=== PATIENT | male | born 1975 | race American Indian/Alaskan Native ===

== ENCOUNTER 2021-10-16 09:55 | Inpatient (IN) | payer MEDICAID, OTHER ==
[2021-10-16] MEDS ORDERED: Sodium Chloride 0.9% 1,000 ML IV ONE ×2 (10:52→12:32)
[2021-10-16] MEDS ORDERED: cefTRIAXone 2 GM in Sodium Chloride 0.9% 50 ML IV ONE ×2 (11:47→12:15)
[2021-10-16] MEDS ORDERED: cefTRIAXone 1 GM AdvVial IV ONE (11:55)
[2021-10-16] MEDS: HYDROmorphone 0.5 MG/0.5 ML Syringe IVPUSH ONE ×2 (13:21→13:22)
[2021-10-16] MEDS ORDERED: Acetaminophen/HYDROcodone 325-5 MG Tab PO ONE (15:13)
[2021-10-16] MEDS ORDERED: HYDROmorphone 1 MG/ML Syringe IVPUSH ONE ×3 (16:10→21:42)
[2021-10-16] MEDS ORDERED: Glucagon,Human Recombinant 1 MG Vial IM PRN (16:11)
[2021-10-16] MEDS ORDERED: 50% Dextrose in Water 50 ML Syringe IVPUSH PRN (16:11)
[2021-10-16] MEDS ORDERED: Insulin Glargine,Human Rec. Analog 100 Units/ML 3 ML Pen SUBCUT SCH (16:15)
[2021-10-16] MEDS ORDERED: Lactated Ringers 1,000 ML IV SCH (16:15)
[2021-10-16] MEDS ORDERED: Ondansetron 4 MG Tab.DIS PO PRN (21:29)
[2021-10-16] MEDS ORDERED: Albuterol/Ipratropium 3.0-0.5 MG/3 ML Neb Soln NEB PRN (21:29)
[2021-10-16] MEDS ORDERED: Enoxaparin 40 MG/0.4 ML Syringe SUBCUT SCH (21:29)
[2021-10-16] MEDS ORDERED: Albuterol 0.083% 2.5 MG/3 ML Neb Soln NEB PRN (21:29)
[2021-10-16] MEDS ORDERED: Lisinopril 20 MG Tab PO SCH (21:29)
[2021-10-16] MEDS ORDERED: Docusate Sodium 100 MG Cap PO PRN (21:29)
[2021-10-16] MEDS ORDERED: Ketorolac 30 MG/ML SDV IM PRN (21:29)
[2021-10-16] MEDS ORDERED: Bisacodyl 5 MG Tab PO PRN (21:29)
[2021-10-16] MEDS ORDERED: LORazepam 2 MG/ML SDV IV PRN (21:29)
[2021-10-16] MEDS ORDERED: Morphine 2 MG/ML SYRINGE IVPUSH PRN (21:29)
[2021-10-16] MEDS ORDERED: NIFEdipine 30 MG Tab.ER PO SCH (21:29)
[2021-10-16] MEDS ORDERED: Acetaminophen 1,000 MG in Premix Bag 1 BAG IV ONE (21:41)
[2021-10-16] MEDS: Sodium Chloride 0.9% 1,000 ML IV SCH (21:47)
[2021-10-16] MEDS ORDERED: Sodium Chloride 0.9% 1,000 ML IV SCH (22:00)
[2021-10-16] MEDS ORDERED: Lisinopril 10 MG Tab ONE (22:11)
[2021-10-16] MEDS: Gabapentin 300 MG Cap PO SCH (22:16)
[2021-10-16] MEDS: glipiZIDE 5 MG Tab.ER PO SCH (22:16)
[2021-10-16] MEDS: Nicotine 21 MG/24 Hr Patch TRDERM SCH (22:17)
[2021-10-16] MEDS: Meropenem 1 GM in Sodium Chloride 0.9% 100 ML IV SCH (22:17)
[2021-10-16] MEDS: Insulin Lispro 100 Unit/ML 3 ML KwikPen SUBCUT SCH (22:19)
[2021-10-17] MEDS ORDERED: cefTRIAXone 2 GM in Sodium Chloride 0.9% 50 ML IV SCH (01:10)
[2021-10-17] MEDS: Acetaminophen/HYDROcodone 325-5 MG Tab PO PRN ×6 (02:43→23:57)
[2021-10-17] MEDS: Meropenem 1 GM in Sodium Chloride 0.9% 100 ML IV SCH ×3 (05:45→22:25)
[2021-10-17] MEDS ORDERED: Insulin Lispro 100 Unit/ML 3 ML KwikPen SUBCUT SCH (07:00)
[2021-10-17] MEDS: Sodium Chloride 0.9% 1,000 ML IV SCH ×2 (07:18→17:28)
[2021-10-17] MEDS: Insulin Lispro 100 Unit/ML 3 ML KwikPen SUBCUT SCH ×4 (08:28→22:21)
[2021-10-17] MEDS: Vancomycin 1.2 GM in Sodium Chloride 0.9% 250 ML IV SCH ×2 (08:30→20:17)
[2021-10-17] MEDS: glipiZIDE 5 MG Tab.ER PO SCH (08:30)
[2021-10-17] MEDS: Insulin Glargine,Human Rec. Analog 100 Units/ML 3 ML Pen SUBCUT SCH (08:31)
[2021-10-17] MEDS: Gabapentin 300 MG Cap PO SCH ×2 (08:32→20:18)
[2021-10-17] MEDS: Nicotine 21 MG/24 Hr Patch TRDERM SCH (08:39)
[2021-10-17] MEDS ORDERED: Insulin Glargine,Human Rec. Analog 100 Units/ML 3 ML Pen SUBCUT SCH (09:00)
[2021-10-17] MEDS: HYDROmorphone 0.5 MG/0.5 ML Syringe IVPUSH PRN (12:50)
[2021-10-17] MEDS: HYDROmorphone 0.5 MG/0.5 ML Syringe IVPUSH ONE (15:52)
[2021-10-17] MEDS: Enoxaparin 40 MG/0.4 ML Syringe SUBCUT SCH (20:19)
[2021-10-18] MEDS: Sodium Chloride 0.9% 1,000 ML IV SCH ×2 (02:25→14:29)
[2021-10-18] MEDS: Meropenem 1 GM in Sodium Chloride 0.9% 100 ML IV SCH (05:33)
[2021-10-18] MEDS: HYDROmorphone 0.5 MG/0.5 ML Syringe IVPUSH PRN ×3 (05:47→23:31)
[2021-10-18 06:35] LABS: ESTIMATED GFR 68 mL/min (>60)
[2021-10-18] MEDS: Vancomycin 1.2 GM in Sodium Chloride 0.9% 250 ML IV SCH (07:48)
[2021-10-18] MEDS: Acetaminophen/HYDROcodone 325-5 MG Tab PO PRN ×4 (07:59→21:44)
[2021-10-18] MEDS: Insulin Lispro 100 Unit/ML 3 ML KwikPen SUBCUT SCH ×4 (08:03→21:43)
[2021-10-18] MEDS: Gabapentin 300 MG Cap PO SCH ×2 (11:28→21:44)
[2021-10-18] MEDS: Insulin Glargine,Human Rec. Analog 100 Units/ML 3 ML Pen SUBCUT SCH (11:29)
[2021-10-18] MEDS: Nicotine 21 MG/24 Hr Patch TRDERM SCH (11:29)
[2021-10-18] MEDS: cefTRIAXone 2 GM in Sodium Chloride 0.9% 50 ML IV SCH (14:31)
[2021-10-18] MEDS: Enoxaparin 40 MG/0.4 ML Syringe SUBCUT SCH (21:44)
[2021-10-19] MEDS: Acetaminophen/HYDROcodone 325-5 MG Tab PO PRN ×4 (03:20→19:43)
[2021-10-19] MEDS: Sodium Chloride 0.9% 1,000 ML IV SCH (04:38)
[2021-10-19] MEDS: Insulin Lispro 100 Unit/ML 3 ML KwikPen SUBCUT SCH ×4 (08:21→21:24)
[2021-10-19] MEDS: Insulin Glargine,Human Rec. Analog 100 Units/ML 3 ML Pen SUBCUT SCH (08:23)
[2021-10-19] MEDS: Nicotine 21 MG/24 Hr Patch TRDERM SCH (08:28)
[2021-10-19] MEDS: Gabapentin 300 MG Cap PO SCH ×2 (08:29→21:25)
[2021-10-19] MEDS: HYDROmorphone 0.5 MG/0.5 ML Syringe IVPUSH PRN ×4 (08:30→21:24)
[2021-10-19] MEDS: tiZANidine 2 MG Tab PO PRN ×3 (12:11→23:56)
[2021-10-19] MEDS: Acetaminophen 325 MG Tab PO PRN (13:37)
[2021-10-19] MEDS: cefTRIAXone 2 GM in Sodium Chloride 0.9% 50 ML IV SCH (14:38)
[2021-10-19] MEDS: Enoxaparin 40 MG/0.4 ML Syringe SUBCUT SCH (21:25)
[2021-10-19] MEDS: HYDROmorphone 1 MG/ML Syringe IVPUSH PRN (22:04)
[2021-10-20] MEDS: HYDROmorphone 1 MG/ML Syringe IVPUSH PRN ×4 (02:44→22:39)
[2021-10-20] MEDS: Acetaminophen/HYDROcodone 325-5 MG Tab PO PRN ×4 (04:06→20:51)
[2021-10-20] MEDS: tiZANidine 2 MG Tab PO PRN ×3 (06:05→19:21)
[2021-10-20] MEDS: Nicotine 21 MG/24 Hr Patch TRDERM SCH (08:08)
[2021-10-20] MEDS: Gabapentin 300 MG Cap PO SCH ×2 (08:09→20:52)
[2021-10-20] MEDS: Insulin Lispro 100 Unit/ML 3 ML KwikPen SUBCUT SCH ×4 (08:10→21:57)
[2021-10-20] MEDS: Insulin Glargine,Human Rec. Analog 100 Units/ML 3 ML Pen SUBCUT SCH (08:14)
[2021-10-20] MEDS ORDERED: Potassium Chloride 20 MEQ Tab.ER PO ONE (08:45)
[2021-10-20] MEDS: cefTRIAXone 2 GM in Sodium Chloride 0.9% 50 ML IV SCH (13:45)
[2021-10-20] MEDS: Ketorolac 30 MG/ML SDV IVPUSH PRN (18:04)
[2021-10-20] MEDS: Temazepam 15 MG Cap PO PRN (20:51)
[2021-10-20] MEDS: Enoxaparin 40 MG/0.4 ML Syringe SUBCUT SCH (20:52)
[2021-10-21] MEDS: Ketorolac 30 MG/ML SDV IVPUSH PRN ×4 (00:08→20:46)
[2021-10-21] MEDS: tiZANidine 2 MG Tab PO PRN ×2 (07:41→19:19)
[2021-10-21] MEDS: Nicotine 21 MG/24 Hr Patch TRDERM SCH (08:35)
[2021-10-21] MEDS: Gabapentin 300 MG Cap PO SCH ×2 (08:36→20:47)
[2021-10-21] MEDS: Insulin Lispro 100 Unit/ML 3 ML KwikPen SUBCUT SCH ×4 (08:42→21:24)
[2021-10-21] MEDS: Insulin Glargine,Human Rec. Analog 100 Units/ML 3 ML Pen SUBCUT SCH (08:46)
[2021-10-21] MEDS: cefTRIAXone 2 GM in Sodium Chloride 0.9% 50 ML IV SCH (15:07)
[2021-10-21] MEDS: metFORMIN 500 MG Tab PO SCH (17:36)
[2021-10-21] MEDS: glipiZIDE 5 MG Tab.ER PO SCH (17:39)
[2021-10-21] MEDS: Enoxaparin 40 MG/0.4 ML Syringe SUBCUT SCH (20:47)
[2021-10-21] MEDS: Temazepam 15 MG Cap PO PRN (20:47)
[2021-10-22] MEDS: tiZANidine 2 MG Tab PO PRN ×2 (01:18→11:42)
[2021-10-22] MEDS: Ketorolac 30 MG/ML SDV IVPUSH PRN (02:54)
[2021-10-22] MEDS: Acetaminophen 325 MG Tab PO PRN (02:54)
[2021-10-22] MEDS: Gabapentin 300 MG Cap PO SCH (08:30)
[2021-10-22] MEDS: metFORMIN 500 MG Tab PO SCH (08:31)
[2021-10-22] MEDS: Nicotine 21 MG/24 Hr Patch TRDERM SCH (08:32)
[2021-10-22] MEDS: glipiZIDE 5 MG Tab.ER PO SCH (08:32)
[2021-10-22] MEDS: Insulin Lispro 100 Unit/ML 3 ML KwikPen SUBCUT SCH ×2 (08:35→12:31)
[2021-10-22] MEDS: Insulin Glargine,Human Rec. Analog 100 Units/ML 3 ML Pen SUBCUT SCH (08:38)
[2021-10-22] MEDS ORDERED: NIFEdipine 30 MG Tab.ER PO SCH (09:00)
[2021-10-22] MEDS ORDERED: atorvaSTATin 20 MG Tab PO SCH (09:00)
[2021-10-22] MEDS ORDERED: Aspirin 81 MG Tab.EC PO SCH (09:00)
[2021-10-22] MEDS ORDERED: Lisinopril 20 MG Tab PO SCH (09:00)
[2021-10-22] MEDS: cefTRIAXone 2 GM in Sodium Chloride 0.9% 50 ML IV SCH (12:33)
== END 2021-10-22 14:10 | disposition home health service (06) | DRG 872 ==
LOC: JP.ED 09:55 → JP.MS 20:06
PROVIDERS: ADMIT Internal Medicine; ATTEND Internal Medicine
DX: A40.0 Sepsis due to streptococcus, group A (principal); N17.9 Acute kidney failure, unspecified; M46.26 Osteomyelitis of vertebra, lumbar region; M46.46 Discitis, unspecified, lumbar region; R65.20 Severe sepsis without septic shock; E11.42 Type 2 diabetes mellitus with diabetic polyneuropathy; F15.10 Other stimulant abuse, uncomplicated; E11.40 Type 2 diabetes mellitus with diabetic neuropathy, unspecified; E11.65 Type 2 diabetes mellitus with hyperglycemia; F17.210 Nicotine dependence, cigarettes, uncomplicated; G43.909 Migraine, unspecified, not intractable, without status migrainosus; E78.00 Pure hypercholesterolemia, unspecified; Z20.822 Contact with and (suspected) exposure to COVID-19; I15.2 Hypertension secondary to endocrine disorders; E86.0 Dehydration; K08.9 Disorder of teeth and supporting structures, unspecified; Z79.4 Long term (current) use of insulin; Z86.19 Personal history of other infectious and parasitic diseases; Z79.82 Long term (current) use of aspirin; Z79.84 Long term (current) use of oral hypoglycemic drugs; Z79.899 Other long term (current) drug therapy; Z89.421 Acquired absence of other right toe(s)
CPT/HCPCS: 36415; 36600; 71045; 71045-26; 72131; 72148; 74176; 80048; 80053; 80202; 80305-QW; 81001; 82803; 82947; 83605; 83735; 84145; 84443; 85025; 85027; 86140; 87040; 87077; 87086; 93306; 96361; 96365; 96367; 96375; 96376; 97162-GP; 97530-GP; 97535-GP; 99222; 99232; 99233; 99239; 99283; 99285-25; A9270-GY; C1751; J0131; J0696; J1170; J1642; J1650; J1815; J1815-GY; J1885; J2185; J2270; J3370; J7030; J7050; J7120; U0002

== ENCOUNTER 2022-06-03 20:32 | Emergency (ER) | payer MEDICAID | END 2022-06-03 21:31 | disposition home or self-care (01) | LOC: JP.ED 20:32 | DX: E11.621 Type 2 diabetes mellitus with foot ulcer (principal); E11.40 Type 2 diabetes mellitus with diabetic neuropathy, unspecified; L97.425 Non-pressure chronic ulcer of left heel and midfoot with muscle involvement without evidence of necrosis; E78.00 Pure hypercholesterolemia, unspecified; I10 Essential (primary) hypertension; Z72.0 Tobacco use; Z79.82 Long term (current) use of aspirin; Z79.4 Long term (current) use of insulin; Z79.899 Other long term (current) drug therapy | CPT/HCPCS: 99282 ==

== ENCOUNTER 2022-09-23 16:16 | Emergency (ER) | payer MEDICAID ==
[2022-09-23 17:36] LABS: HEMATOCRIT 32.3 % (38.4-49.7); HEMOGLOBIN 10.4 g/dL (12.9-16.9); MEAN CORPUSCULAR HEMOGLOBIN 25.9 pg (31.6-35.5); MEAN CORPUSCULAR HGB CONC 32.2 g/dL (31.6-35.5); MEAN CORPUSCULAR VOLUME 80.5 fL (81.4-99.0); PLATELET COUNT,PLT 327 K/uL (130-375); RED BLOOD CELL COUNT 4.01 M/uL (4.14-5.76); WHITE BLOOD CELL COUNT,WBC 24.8 K/uL (3.2-11.0)
[2022-09-23 17:39] LABS: APPEARANCE,URINE CLOUDY (CLEAR); BILIRUBIN,URINE NEGATIVE (NEGATIVE); COLOR,URINE YELLOW (YELLOW); GLUCOSE,URINE 500 mg/dL (NEGATIVE); KETONES,URINE NEGATIVE (NEGATIVE); LEUKOCYTE ESTERASE,URINE NEGATIVE (NEGATIVE); NITRITE,URINE NEGATIVE (NEGATIVE); OCCULT BLOOD,URINE TRACE-INTACT (NEGATIVE); PH,URINE 5.5 (5.0-8.0); PROTEIN,URINE 30 mg/dL (NEGATIVE); UROBILINOGEN,URINE 0.2 EU/dL (0.2-1.0)
[2022-09-23 17:45] LABS: BAND ABSOLUTE MAN 0.74 K/uL; BAND PERCENT MAN 3 % (5-11); LYMPHOCYTES ABSOLUTE MAN 0.99 K/uL (0.8-3.3); LYMPHOCYTES PERCENT MAN 4 % (24-44); METAMYELOCYTE ABSOLUTE MAN 0.25 K/uL; METAMYELOCYTE PERCENT MAN 1 %; MONOCYTES ABSOLUTE MAN 0.25 K/uL (0.20-0.90); MONOCYTES PERCENT MAN 1 % (2-6); NEUTROPHILS ABSOLUTE MAN 22.57 K/uL (1.0-7.6); SEG NEUTROPHILS PERCENT MAN 91 % (36-66)
[2022-09-23 17:49] LABS: RBC,URINE 0-5 (0-5); WBC,URINE 0-5 (0-5)
[2022-09-23 17:50] LABS: EPITHELIAL CELLS,URINE FEW
[2022-09-23 17:51] LABS: AMORPHOUS SEDIMENT,URINE MODERATE; BACTERIA,URINE FEW; MUCUS,URINE NOT SEEN
[2022-09-23 17:53] LABS: BLOOD UREA NITROGEN,BUN 30 mg/dL (7-18); CALCIUM 9.2 mg/dL (8.5-10.1); CARBON DIOXIDE,CO2 24 mmol/L (21-32); CHLORIDE,CL 88 mmol/L (100-108); ESTIMATED GFR 40 mL/min (>60); POTASSIUM,K 4.8 mmol/L (3.6-5.2); SODIUM,NA 121 mmol/L (140-148)
[2022-09-23 17:54] LABS: ANION GAP 13.8 mmol/L (5.0-14.0); GLUCOSE RANDOM 659 mg/dL (74-106)
[2022-09-23] MEDS ORDERED: Sodium Chloride 0.9% 1,000 ML IV ONE ×3 (18:06→21:48)
[2022-09-23] MEDS ORDERED: Ampicillin/Sulbactam Na 3 GM in Sodium Chloride 0.9% 100 ML IV ONE (18:17)
[2022-09-23 18:18] LABS: BASE EXCESS VENOUS 0.1 mm/L; BICARBONATE,VENOUS 24.3 mmol/L; METHEMOGLOBIN 0.9 %; O2 SATURATION VENOUS 48.8; OXYHEMOGLOBIN 46.9 %; PCO2 VENOUS 40.4 mm/Hg; PH,VENOUS 7.398 (7.350-7.450); TOTAL HEMOGLOBIN 10.7 g/dL (13.5-18.0)
[2022-09-23 18:19] LABS: PO2 VENOUS 28.7 mm/Hg
[2022-09-23] MEDS ORDERED: Vancomycin 2 GM in Sodium Chloride 0.9% 500 ML IV ONE (18:32)
[2022-09-23] MEDS ORDERED: Azithromycin 500 MG in Sodium Chloride 0.9% 150 ML IV ONE (19:09)
[2022-09-23 21:08] LABS: AMPHETAMINES SCREEN, URINE NEGATIVE (NEGATIVE); BARBITURATE SCREEN,URINE NEGATIVE (NEGATIVE); BENZODIAZEPINES SCREEN,URINE NEGATIVE (NEGATIVE); METHADONE SCREEN, URINE NEGATIVE (NEGATIVE); METHAMPHETAMINES SCREEN, URINE PRESUMPTIVE POSITIVE (NEGATIVE); OXYCODONE SCREEN,URINE NEGATIVE (NEGATIVE); PROPOXYPHENE SCREEN,URINE NEGATIVE (NEGATIVE); THC SCREEN,URINE 50 NG/ML NEGATIVE (NEGATIVE)
[2022-09-23] MEDS ORDERED: Enoxaparin 30 MG/0.3 ML Syringe SUBCUT SCH (23:00)
[2022-09-23] MEDS ORDERED: Insulin Lispro 100 Units/ML 3 ML Vial SUBCUT ONE (23:10)
[2022-09-23] MEDS ORDERED: Glucagon,Human Recombinant 1 MG Vial IM PRN (23:10)
[2022-09-23] MEDS ORDERED: 50% Dextrose in Water 50 ML Syringe IVPUSH PRN (23:10)
[2022-09-23] MEDS ORDERED: Insulin Lispro 100 Units/ML 3 ML Vial ONE (23:22)
[2022-09-23] MEDS ORDERED: Insulin Lispro 100 Unit/ML 3 ML KwikPen SUBCUT ONE ×2 (23:25→23:29)
[2022-09-24] MEDS: Ampicillin/Sulbactam Na 3 GM in Sodium Chloride 0.9% 100 ML IV SCH ×2 (00:38→05:58)
[2022-09-24 05:16] LABS: HEMATOCRIT 33.1 % (38.4-49.7); HEMOGLOBIN 10.8 g/dL (12.9-16.9); MEAN CORPUSCULAR HEMOGLOBIN 26.3 pg (31.6-35.5); MEAN CORPUSCULAR HGB CONC 32.6 g/dL (31.6-35.5); MEAN CORPUSCULAR VOLUME 80.5 fL (81.4-99.0); PLATELET COUNT,PLT 264 K/uL (130-375); RED BLOOD CELL COUNT 4.11 M/uL (4.14-5.76); WHITE BLOOD CELL COUNT,WBC 24.1 K/uL (3.2-11.0)
[2022-09-24 05:27] LABS: CALCIUM 8.7 mg/dL (8.5-10.1); CREATININE 1.4 mg/dL (0.8-1.3); EST CRCL DRUG DOSING (CG) 68.73 mL/min; POTASSIUM,K 3.9 mmol/L (3.6-5.2)
[2022-09-24] MEDS ORDERED: 50% Dextrose in Water 50 ML Syringe IVPUSH PRN (05:51)
[2022-09-24] MEDS ORDERED: Glucagon,Human Recombinant 1 MG Vial IM PRN (05:51)
[2022-09-24] MEDS ORDERED: Insulin Lispro 100 Units/ML 3 ML Vial SUBCUT ONE (05:51)
[2022-09-24 05:56] LABS: ANION GAP 11.9 mmol/L (5.0-14.0)
[2022-09-24 05:58] LABS: BAND ABSOLUTE MAN 0.72 K/uL; BAND PERCENT MAN 3 % (5-11); LYMPHOCYTES ABSOLUTE MAN 2.89 K/uL (0.8-3.3); LYMPHOCYTES PERCENT MAN 12 % (24-44); MONOCYTES ABSOLUTE MAN 0.96 K/uL (0.20-0.90); MONOCYTES PERCENT MAN 4 % (2-6); NEUTROPHILS ABSOLUTE MAN 19.52 K/uL (1.0-7.6); SEG NEUTROPHILS PERCENT MAN 81 % (36-66)
== END 2022-09-24 06:38 | disposition home or self-care (01) ==
LOC: JP.ED 16:16
DX: A41.9 Sepsis, unspecified organism (principal); J18.9 Pneumonia, unspecified organism; R65.21 Severe sepsis with septic shock; N17.9 Acute kidney failure, unspecified; E11.42 Type 2 diabetes mellitus with diabetic polyneuropathy; J90 Pleural effusion, not elsewhere classified; F15.10 Other stimulant abuse, uncomplicated; D16.5 Benign neoplasm of lower jaw bone; D50.9 Iron deficiency anemia, unspecified; E78.00 Pure hypercholesterolemia, unspecified; I10 Essential (primary) hypertension; E11.40 Type 2 diabetes mellitus with diabetic neuropathy, unspecified; F17.210 Nicotine dependence, cigarettes, uncomplicated; Z79.4 Long term (current) use of insulin; Z79.82 Long term (current) use of aspirin; Z79.899 Other long term (current) drug therapy
CPT/HCPCS: 36415; 70486; 71045; 80048; 80305; 81001; 82009; 82803; 82947; 83605; 84145; 84484; 85025; 87040; 87086; 93005; 96361; 96365; 96366; 96367; 96368; 96372; 99285; J0295; J0456; J1650; J1815; J3370; J3490; J7030; J7040

== ENCOUNTER 2023-01-14 13:39 | Emergency (ER) | payer MEDICAID ==
[2023-01-14 15:09] LABS: HEMATOCRIT 38.2 % (38.4-49.7); HEMOGLOBIN 12.5 g/dL (12.9-16.9); MEAN CORPUSCULAR HEMOGLOBIN 26.7 pg (31.6-35.5); MEAN CORPUSCULAR HGB CONC 32.7 g/dL (31.6-35.5); MEAN CORPUSCULAR VOLUME 81.4 fL (81.4-99.0); RED BLOOD CELL COUNT 4.69 M/uL (4.14-5.76); WHITE BLOOD CELL COUNT,WBC 21.5 K/uL (3.2-11.0)
[2023-01-14 15:24] LABS: BASOPHILS ABSOLUTE AUTO 0.05 K/uL (0.00-0.10); BASOPHILS PERCENT AUTO 0.2 % (0.1-1.3); EOSINOPHILS ABSOLUTE AUTO 0.06 K/uL (0.00-0.40); EOSINOPHILS PERCENT AUTO 0.3 % (0.0-5.4); HEMATOCRIT 38.1 % (38.4-49.7); HEMOGLOBIN 12.6 g/dL (12.9-16.9); IMMATURE GRAN ABSOLUTE AUTO 0.24 K/uL (0.00-0.23); IMMATURE GRAN PERCENT AUTO 1.1 % (0.0-0.7); LYMPHOCYTES ABSOLUTE AUTO 1.44 K/uL (0.8-3.3); LYMPHOCYTES PERCENT AUTO 6.8 % (11.4-47.7); MEAN CORPUSCULAR HEMOGLOBIN 26.9 pg (31.6-35.5); MEAN CORPUSCULAR HGB CONC 33.1 g/dL (31.6-35.5); MEAN CORPUSCULAR VOLUME 81.2 fL (81.4-99.0); MONOCYTES ABSOLUTE AUTO 1.01 K/uL (0.20-0.90); MONOCYTES PERCENT AUTO 4.8 % (3.3-12.6); NEUTROPHILS ABSOLUTE AUTO 18.36 K/uL (1.0-7.6); NEUTROPHILS PERCENT AUTO 86.8 % (40.0-78.1); PLATELET COUNT,PLT 266 K/uL (130-375); RED BLOOD CELL COUNT 4.69 M/uL (4.14-5.76); WHITE BLOOD CELL COUNT,WBC 21.2 K/uL (3.2-11.0)
[2023-01-14 15:38] LABS: ANION GAP 11.3 mmol/L (5.0-14.0); CALCIUM 9.6 mg/dL (8.5-10.1); CREATININE 1.4 mg/dL (0.8-1.3); EST CRCL DRUG DOSING (CG) 68.73 mL/min; POTASSIUM,K 4.3 mmol/L (3.6-5.2)
[2023-01-14] MEDS ORDERED: Sodium Chloride 0.9% 10 ML Syringe FLUSH PRN (15:49)
[2023-01-14] MEDS ORDERED: Sodium Chloride 0.9% 1,000 ML IV ONE (15:49)
[2023-01-14 15:50] LABS: C-REACTIVE PROTEIN 26.73 mg/dL (0.0-0.3)
[2023-01-14 15:54] LABS: BASE EXCESS VENOUS 1.5 mm/L; BICARBONATE,VENOUS 27.5 mmol/L; CARBOXYHEMOGLOBIN 3.4 % (0.0-1.6); METHEMOGLOBIN 0.8 %; PCO2 VENOUS 51.5 mm/Hg; PH,VENOUS 7.347 (7.350-7.450); TOTAL HEMOGLOBIN 13.2 g/dL (13.5-18.0)
[2023-01-14 15:56] LABS: PO2 VENOUS 26.6 mm/Hg
== END 2023-01-14 16:35 ==
LOC: JP.ED 13:39
DX: E11.621 Type 2 diabetes mellitus with foot ulcer (principal); E11.65 Type 2 diabetes mellitus with hyperglycemia; L97.512 Non-pressure chronic ulcer of other part of right foot with fat layer exposed; F17.210 Nicotine dependence, cigarettes, uncomplicated; E11.40 Type 2 diabetes mellitus with diabetic neuropathy, unspecified; E78.00 Pure hypercholesterolemia, unspecified; I10 Essential (primary) hypertension; Z79.4 Long term (current) use of insulin; Z79.84 Long term (current) use of oral hypoglycemic drugs; Z79.82 Long term (current) use of aspirin; Z79.899 Other long term (current) drug therapy
CPT/HCPCS: 36415; 80048; 82803; 83605; 84145; 85025; 85027; 86140; 87040; 96365; 99284; J3370; J7030; J7050

== ENCOUNTER 2024-05-28 00:17 | Emergency (ER) | payer MEDICAID ==
[2024-05-28 00:35] LABS: BASOPHILS ABSOLUTE AUTO 0.05 K/uL (0.00-0.10); BASOPHILS PERCENT AUTO 0.4 % (0.1-1.3); EOSINOPHILS ABSOLUTE AUTO 0.16 K/uL (0.00-0.40); EOSINOPHILS PERCENT AUTO 1.3 % (0.0-5.4); HEMATOCRIT 38.7 % (38.4-49.7); HEMOGLOBIN 12.7 g/dL (12.9-16.9); IMMATURE GRAN ABSOLUTE AUTO 0.04 K/uL (0.00-0.23); IMMATURE GRAN PERCENT AUTO 0.3 % (0.0-0.7); LYMPHOCYTES ABSOLUTE AUTO 1.55 K/uL (0.8-3.3); LYMPHOCYTES PERCENT AUTO 12.3 % (11.4-47.7); MEAN CORPUSCULAR HGB CONC 32.8 g/dL (31.6-35.5); MEAN CORPUSCULAR VOLUME 82.3 fL (81.4-99.0); MONOCYTES ABSOLUTE AUTO 0.64 K/uL (0.20-0.90); MONOCYTES PERCENT AUTO 5.1 % (3.3-12.6); NEUTROPHILS PERCENT AUTO 80.6 % (40.0-78.1); PLATELET COUNT,PLT 300 K/uL (130-375); WHITE BLOOD CELL COUNT,WBC 12.6 K/uL (3.2-11.0)
[2024-05-28 00:57] LABS: A/G RATIO 0.7 (1.2-2.2); ALANINE AMINOTRANSFERASE,ALT 24 U/L (12-78); ALBUMIN 2.8 g/dL (3.4-5.0); ALKALINE PHOSPHATASE 123 U/L (46-116); ASPARTATE AMNIOTRANSFERASE,AST 16 U/L (15-37); BLOOD UREA NITROGEN,BUN 27 mg/dL (7-18); CALCIUM 8.5 mg/dL (8.5-10.1); CARBON DIOXIDE,CO2 24 mmol/L (21-32); CHLORIDE,CL 99 mmol/L (100-108); CREATININE 1.8 mg/dL (0.8-1.3); EST CRCL DRUG DOSING (CG) 52.29 mL/min; ESTIMATED GFR 45 mL/min (>60); GLUCOSE RANDOM 292 mg/dL (74-106); PROTEIN TOTAL,TP 6.8 g/dL (6.4-8.2); SODIUM,NA 134 mmol/L (140-148); TROPONIN I HIGH SENSITIVITY 15.6 pg/mL (<=60.3)
[2024-05-28 00:59] LABS: BILIRUBIN TOTAL < 0.1 mg/dL (0.2-1.0)
[2024-05-28] MEDS: Sodium Chloride 0.9% 1,000 ML IV SCH (01:50)
[2024-05-28] MEDS: Sodium Chloride 0.9% 10 ML Syringe FLUSH PRN (01:50)
[2024-05-28] MEDS: Ondansetron 4 MG/2 ML SDV IVPUSH ONE (01:53)
[2024-05-28 03:11] LABS: APPEARANCE,URINE CLEAR (CLEAR); BILIRUBIN,URINE NEGATIVE (NEGATIVE); COLOR,URINE YELLOW (YELLOW); GLUCOSE,URINE 500 mg/dL (NEGATIVE); KETONES,URINE NEGATIVE (NEGATIVE); LEUKOCYTE ESTERASE,URINE NEGATIVE (NEGATIVE); NITRITE,URINE NEGATIVE (NEGATIVE); OCCULT BLOOD,URINE NEGATIVE (NEGATIVE); PROTEIN,URINE >=300 mg/dL (NEGATIVE); UROBILINOGEN,URINE 0.2 EU/dL (0.2-1.0)
[2024-05-28 03:19] LABS: AMPHETAMINES SCREEN, URINE PRESUMPTIVE POSITIVE (NEGATIVE); METHAMPHETAMINES SCREEN, URINE PRESUMPTIVE POSITIVE (NEGATIVE)
[2024-05-28 03:20] LABS: AMORPHOUS SEDIMENT,URINE NOT SEEN; BACTERIA,URINE RARE; BARBITURATE SCREEN,URINE NEGATIVE (NEGATIVE); BENZODIAZEPINES SCREEN,URINE NEGATIVE (NEGATIVE); EPITHELIAL CELLS,URINE NOT SEEN; METHADONE SCREEN, URINE NEGATIVE (NEGATIVE); MUCUS,URINE NOT SEEN; OXYCODONE SCREEN,URINE NEGATIVE (NEGATIVE); PROPOXYPHENE SCREEN,URINE NEGATIVE (NEGATIVE); RBC,URINE 0-5 (0-5); THC SCREEN,URINE 50 NG/ML NEGATIVE (NEGATIVE); WBC,URINE 0-5 (0-5)
== END 2024-05-28 04:00 | disposition home or self-care (01) ==
LOC: JP.ED 00:17
DX: R07.89 Other chest pain (principal); E11.42 Type 2 diabetes mellitus with diabetic polyneuropathy; F15.10 Other stimulant abuse, uncomplicated; I10 Essential (primary) hypertension; E78.00 Pure hypercholesterolemia, unspecified; F17.210 Nicotine dependence, cigarettes, uncomplicated; Z86.16 Personal history of COVID-19; Z79.82 Long term (current) use of aspirin; Z79.899 Other long term (current) drug therapy; Z79.84 Long term (current) use of oral hypoglycemic drugs
CPT/HCPCS: 36415; 71046; 71046-26; 80053; 80305-QW; 81001; 83690; 84484; 85025; 93005; 93010; 96360; 99284; 99285-25; J7030

== ENCOUNTER 2024-10-14 19:14 | Emergency (ER) | payer MEDICAID ==
[2024-10-14 19:47] LABS: BASOPHILS ABSOLUTE AUTO 0.06 K/uL (0.00-0.10); BASOPHILS PERCENT AUTO 0.5 % (0.1-1.3); EOSINOPHILS ABSOLUTE AUTO 0.22 K/uL (0.00-0.40); EOSINOPHILS PERCENT AUTO 1.9 % (0.0-5.4); IMMATURE GRAN PERCENT AUTO 0.2 % (0.0-0.7); LYMPHOCYTES ABSOLUTE AUTO 2.41 K/uL (0.8-3.3); LYMPHOCYTES PERCENT AUTO 20.5 % (11.4-47.7); MONOCYTES ABSOLUTE AUTO 0.76 K/uL (0.20-0.90); MONOCYTES PERCENT AUTO 6.5 % (3.3-12.6); NEUTROPHILS ABSOLUTE AUTO 8.30 K/uL (1.0-7.6); NEUTROPHILS PERCENT AUTO 70.4 % (40.0-78.1); PLATELET COUNT,PLT 313 K/uL (130-375); RED BLOOD CELL COUNT 4.30 M/uL (4.14-5.76); WHITE BLOOD CELL COUNT,WBC 11.8 K/uL (3.2-11.0)
[2024-10-14 19:54] LABS: IMMATURE GRAN ABSOLUTE AUTO 0.02 K/uL (0.00-0.23)
[2024-10-14 20:07] LABS: ALANINE AMINOTRANSFERASE,ALT 28 U/L (12-78); ASPARTATE AMNIOTRANSFERASE,AST 27 U/L (15-37); BILIRUBIN TOTAL 0.3 mg/dL (0.2-1.0); BLOOD UREA NITROGEN,BUN 35 mg/dL (7-18); CARBON DIOXIDE,CO2 26 mmol/L (21-32); CHLORIDE,CL 102 mmol/L (100-108); CREATININE 1.9 mg/dL (0.8-1.3); EST CRCL DRUG DOSING (CG) 49.54 mL/min; ESTIMATED GFR 42 mL/min (>60); GLUCOSE RANDOM 287 mg/dL (74-106); POTASSIUM,K 4.5 mmol/L (3.6-5.2); PROTEIN TOTAL,TP 7.9 g/dL (6.4-8.2); SODIUM,NA 136 mmol/L (140-148)
[2024-10-14 20:08] LABS: A/G RATIO 0.7 (1.2-2.2)
[2024-10-14 20:12] LABS: LACTIC ACID 2.1 mmol/L (0.4-2.0)
[2024-10-14] MEDS: Ampicillin/Sulbactam Na 3 GM in Sodium Chloride 0.9% 100 ML IV ONE (21:10)
[2024-10-14] MEDS: Bacitracin Oint 1 GM U/D Packet TOP ONE (21:16)
[2024-10-14] MEDS: Bacitracin Oint 1 GM U/D Packet ONE (21:55)
== END 2024-10-14 22:10 | disposition home or self-care (01) ==
LOC: JP.ED 19:14
DX: L03.211 Cellulitis of face (principal); I10 Essential (primary) hypertension; E78.00 Pure hypercholesterolemia, unspecified; E11.42 Type 2 diabetes mellitus with diabetic polyneuropathy; F17.200 Nicotine dependence, unspecified, uncomplicated; Z86.16 Personal history of COVID-19; Z79.82 Long term (current) use of aspirin; Z79.4 Long term (current) use of insulin; Z79.84 Long term (current) use of oral hypoglycemic drugs; Z79.899 Other long term (current) drug therapy
CPT/HCPCS: 36415; 80053; 83605; 85025; 86140; 96365; 99283; J0295; J7030